=== PATIENT | female | born 1945 | race Caucasian/White ===

== ENCOUNTER 2016-09-01 16:23 | Emergency (ER) | payer MEDICARE, BC ==
[2016-09-01 16:46] VITALS: BP 146/89
[2016-09-01] MEDS ORDERED: HYDROmorphone 1 MG/ML Syringe IM ONE (17:19)
--- NOTE | 2016-09-01 17:28 | EDM.PDOC ---
[id number] 4d HURT LEFT WRIST Time Seen by Provider: 09/01/16 16:55 Source: Reports: Patient History Limitations: Reports: No limitations - History of Present Illness INITIAL COMMENTS - FREE TEXT/NARRATIVE: 71-year-old female fell striking her left wrist hard on the ground sustaining an injury. She also bumped her left eyebrow in an extended right hand but those are minor injuries, there was no loss of consciousness. She has deformity and swelling and significant pain in the left wrist. She is otherwise healthy, has never had a surgery. Occurred When: just prior to arrival Occurred Where: home Method of Injury: direct blow, fall Severity: moderate Pain/Injury Location: Reports: upper extremity, left Consciousness: Reports: no loss of consciousness, remembers incident Associated Symptoms: Reports: other (Some mild discomfort on the left eyebrow and right hand) Allergies/ADRs: Allergies No Known Allergies Allergy (Verified 09/01/16 16:43) Home Medications: Ambulatory Orders Aspirin 81 mg PO DAILY 09/01/16 [Confirmed 09/01/16] Azelastine/Fluticasone [Dymista Nasal [place]] 23 gm NS DAILY 09/01/16 [Confirmed 09/01/16] Ergocalciferol (Vitamin D2) [Vitamin D] 600 unit PO DAILY 09/01/16 [Confirmed ] Levothyroxine 75 mcg PO ACBREAKFAST 09/01/16 [Confirmed 09/01/16] Montelukast [Singulair] 10 mg PO ONETIME 09/01/16 [Confirmed 09/01/16] atorvaSTATin Calcium [Atorvastatin Calcium] 20 mg PO DAILY 09/01/16 [Confirmed 09/01/16] Past Medical History Cardiovascular History: Reports: Hypertension - Infectious Disease History Infectious Disease History: Reports: Chicken pox, Measles, Mumps Social & Family History - Tobacco Use Smoking Status *Q: Never Smoker - Caffeine Use Caffeine Use: Reports: Coffee, Energy drinks, Tea - Recreational Drug Use Recreational Drug Use: No Review of Systems - Review of Systems Review Of Systems: See Below Eyes: Denies: blurred vision Ears: Denies: dizziness Mouth/Throat: Reports: no symptoms Respiratory: Denies: Shortness of Breath Cardiovascular: Denies: chest pain GI/Abdominal: Denies: Nausea, Vomiting Skin: Reports: lesions Neurological: Denies: Headache Trauma Exam - Physical Exam Exam: See Below Exam Limited By: No limitations General Appearance: Reports: alert, mild distress (Looks uncomfortable) Head: Reports: other (Minimal contusion on the left eyebrow, no significant abrasion and no laceration) Neck: Reports: non-tender Respiratory Exam: Reports: no respiratory distress Cardiovascular: Reports: regular rate, rhythm Extremities: Reports: other (Exam is otherwise limited to the extremities. Despite the discomfort in her right wrist and hand she has no point tenderness or bony tenderness or deformity. Minimal pain with movement. The left wrist however is deformed, swollen, and obviously fractured.) Skin: Reports: Normal color Course - Vital Signs Last Recorded V/S: Last Vital Signs Temp 97.7 F 09/01/16 16:45 Pulse 80 09/01/16 16:45 Resp 20 09/01/16 16:45 BP 146/89 H 09/01/16 16:45 Pulse Ox 98 09/01/16 16:45 - Orders/Labs/Meds Meds: Medications Discontinued Medications Generic Name Dose Route Start Last Admin Trade Name Freq PRN Reason Stop Dose Admin Hydromorphone HCl 1 mg 09/01/16 17:19 09/01/16 17:23 Dilaudid IM 09/01/16 17:20 1 mg ONETIME ONE Administration - Re-Assessments/Exams Free Text/Narrative Re-Assessment/Exam: 09/01/16 17:26 Left wrist x-ray confirmed a displaced Colles' fracture. She was placed in a foam layered short-arm Ortho-Glass splint and given a sling. 1 mg of Dilaudid IM was given, and the patient was given 20 Percocet to take to the next 3 days along with anti-inflammatories. She will recheck with orthopedics on Saturday, Dr. Derrick Gupta agreed to see her and likely will have surgery on Saturday. Departure - Departure Time of Disposition: 17:43 Disposition: Home, Self-Care 01 Condition: fair Clinical Impression: Closed fracture of radius and ulna Qualifiers: Encounter type: initial encounter Laterality: left Qualified Code(s): S52.202A - Unspecified fracture of shaft of left ulna, initial encounter for closed fracture; S52.92XA - Unspecified fracture of left forearm, initial encounter for closed fracture Instructions: Wrist Fracture Treated With Immobilization Referrals: PCP,None [Primary Care Provider] - Forms: ED Department Discharge Care Plan Goals: Keep arm in splint and sling until Saturday, recheck with Derrick Gupta
--- NOTE | 2016-09-03 11:31 | CR ---
Left wrist There is a displaced transverse radial metaphyseal fracture. There is a fracture of the ulnar styloi d. The carpal bones appear intact. Impression: 1. Displaced radial metaphyseal fracture.
== END 2016-09-01 17:44 | disposition home or self-care (01) ==
LOC: JP.ED 16:23
DX: S52.532A Colles' fracture of left radius, initial encounter for closed fracture (principal); S52.612A Displaced fracture of left ulna styloid process, initial encounter for closed fracture; Z79.82 Long term (current) use of aspirin; Z79.899 Other long term (current) drug therapy; I10 Essential (primary) hypertension; W01.10XA Fall on same level from slipping, tripping and stumbling with subsequent striking against unspecified object, initial encounter
CPT/HCPCS: 73110; 99283; 99284; J1170

== ENCOUNTER 2016-09-04 06:18 | Day surgery (SDC) | payer MEDICARE, BC ==
[2016-09-04] MEDS ORDERED: Bupivacaine 0.5%/EPINEPHrine 1:200,000 50 ML MDV ONE (06:51)
[2016-09-04] MEDS ORDERED: Povidone-Iodine 10% Soln 118.25 ML Bottle ONE (06:52)
[2016-09-04] MEDS ORDERED: Lactated Ringers 1,000 ML IV SCH (07:00)
[2016-09-04] MEDS ORDERED: Propofol 200 MG/20 ML SDV ONE (07:18)
[2016-09-04] MEDS ORDERED: Midazolam 1 MG/ML 2 ML SDV ONE (07:18)
[2016-09-04] MEDS ORDERED: fentaNYL 100 MCG/2 ML SDV ONE ×2 (07:18→07:42)
[2016-09-04] MEDS ORDERED: ceFAZolin 1 GM in Premix Bag 1 BAG IV ONE (07:30)
[2016-09-04] MEDS ORDERED: Ondansetron 4 MG/2 ML SDV ONE (07:42)
[2016-09-04] MEDS ORDERED: Dexamethasone 4 MG/ML SDV ONE (07:42)
[2016-09-04] MEDS ORDERED: Ketorolac 60 MG/2 ML SDV ONE (08:30)
[2016-09-04] MEDS ORDERED: Acetaminophen/HYDROcodone 325-5 MG Tab PO ONE (10:00)
[2016-09-04 10:44] VITALS: BP 145/85
--- NOTE | 2016-09-04 16:44 | OR ---
DATE OF PROCEDURE: 09/04/2016 PREOPERATIVE DIAGNOSIS: Left distal radius fracture and left distal ulna fracture closed. POSTOPERATIVE DIAGNOSIS: Left distal radius fracture and left distal ulna fracture closed. PROCEDURE: Open reduction and internal fixation, left distal radius. ANESTHESIA: General anesthesia, laryngeal mask airway. FLUID: Lactated Ringer solution. ESTIMATED BLOOD LOSS: 20 mL. COMPLICATIONS: None. SPECIMEN: None. DISCHARGE DISPOSITION: Stable to PACU. TOURNIQUET TIME: 36 minutes. HISTORY AND INDICATION FOR THE PROCEDURE: The patient fell on Saturday. She was seen in the emergency department where she was placed into a short-arm splint. She was seen yesterday in the clinic. Preoperative imaging confirmed the above-mentioned diagnosis. Risks and benefits of the procedure were explained to the patient. Informed consent was obtained. DETAILS OF PROCEDURE: The patient was seen preoperatively by myself and the anesthesia staff in the preoperative holding area, where the operative site was marked. She was brought to the operative suite by the anesthesia staff where general anesthesia was administered. Her old splint was removed. A well-padded tourniquet was placed on the left arm. The left upper extremity was then prepped and draped in a sterile manner. Time-out was called identifying the correct patient, correct procedure, the correct site, and antibiotics had begun with an appropriate period of time. The left upper extremity was then exsanguinated. Sterilely draped fluoroscopy unit was used to visualize the fracture site, it was reduced and then using a K-wire through the radial styloid into the radial shaft, fracture reduction was maintained. An incision was made over the flexor carpi radialis tendon from the radiocarpal joint proximally approximately 10 cm. Bleeding was controlled with Bovie electrocautery. The tendon was then retracted with Weitlaner retractors and then the sheath was then incised with a blade. The pronator was identified. The pronator was then released from its radial insertion, and an elevator was used to identify the fracture site. At that point in time, I could see that we needed just a little bit more reduction and the K-wire was then re-maneuvered and placed into the shaft and then a good reduction was confirmed on AP and lateral fluoro. We then placed a small left plate. I placed the awl hole screw first and then adjusted it using fluoroscopy and that was a 14 mm cortical screw. We then placed our proximal and distal rows with the exception of the proximal ulnar screw. This was shown to provide good fixation as well as mandaen of radial height and inclination. We then placed our two other cortical screws and took final films. We then irrigated with regular saline and then let the tourniquet down. Then controlled any extra small bleeders with Bovie electrocautery. I then irrigated with some Betadine infused irrigation and regular saline again and then closed with subcutaneous 3-0 Vicryl interrupted sutures followed by 3-0 nylon horizontal mattress followed by Betadine-soaked Adaptic, sterile gauze, and then placed a short-arm splint. The patient was then allowed to awaken from general anesthesia and taken to the PACU in stable condition. Yamil Gupta DO /[id number]
== END 2016-09-04 11:00 | disposition home or self-care (01) ==
LOC: JP.SDS 06:18
PROVIDERS: ATTEND Orthopaedic Surgery
DX: S52.502A Unspecified fracture of the lower end of left radius, initial encounter for closed fracture (principal); S52.602A Unspecified fracture of lower end of left ulna, initial encounter for closed fracture; W19.XXXA Unspecified fall, initial encounter; I10 Essential (primary) hypertension; Z79.82 Long term (current) use of aspirin; Z79.899 Other long term (current) drug therapy
CPT/HCPCS: 25607; 25652; 36415; 76000; 84132; A9270; C1713; J0690; J1100; J1885; J2250; J2405; J2704; J3010; J7120